=== PATIENT | female | born 1965 | race Caucasian/White ===

== ENCOUNTER 2016-06-26 11:09 | Day surgery (SDC) | payer BC ==
[~2016-06-26] VITALS: Ht 154.9 cm; Wt 90.0 kg
[2016-06-26] VITALS (15 sets, daily range): BP systolic 90–129; BP diastolic 54–87; PULSE 76–92; RESP 12–20; Ht 154.9 cm; Wt 90.0 kg
[~2016-06-26 11:09] MED LIST: ALBU8.5H3 IH; SOD CHLORIDE 0.9% 1,000 ML IV SCH
[2016-06-26 12:52] LABS: ADD SCAN DIFF NO
[2016-06-26 12:58] LABS: BASOPHILS % 0.5 % (0.0-2.0); EOSINOPHILS # 0.2 10^3/ul (0.0-0.5); EOSINOPHILS % 2.2 % (0.0-7.0); HEMATOCRIT 38.6 % (37.0-47.0); HEMOGLOBIN 12.6 g/dl (12.0-16.0); LYMPHOCYTES # 2.4 10^3/ul (0.8-2.9); LYMPHOCYTES % 31.7 % (15.0-51.0); MEAN CORPUSCULAR HEMOGLOBIN 28.5 pg (29.0-33.0); MEAN CORPUSCULAR HGB CONC 32.6 g/dl (32.0-37.0); MEAN CORPUSCULAR VOLUME 87.3 fl (82.0-101.0); MONOCYTE # 0.4 10^3/ul (0.3-0.9); MONOCYTES % 5.3 % (0.0-11.0); NEUTROPHIL # 4.6 10^3/ul (1.6-7.5); NEUTROPHILS % 60.2 % (39.0-77.0); PLATELET COUNT 292 10^3/UL (140-415); RED BLOOD COUNT 4.42 10^6/ul (4.20-5.40); RED CELL DISTRIBUTION WIDTH 13.9 % (11.5-14.5); WHITE BLOOD COUNT 7.6 10^3/ul (4.8-10.8)
--- NOTE | 2016-06-26 13:08 | RADRPT ---
PROCEDURE: XR Chest. CLINICAL INDICATION: Preoperative, left upper neck mass TECHNIQUE: Single frontal view of the chest was obtained COMPARISON: 09/03/2012 FINDINGS: The heart and mediastinum are within normal limits. The lungs are clear. There is no pleural effusion or pneumothorax. RPTAT: AA IMPRESSION: No acute disease. .Heladio Garcia MD, MD Date Time Electronically viewed and signed by .Heladio Garcia MD, MD on 06/26/2016 13:08 .S/
[2016-06-26] MEDS ORDERED: CEFAZOLIN 1 GM/50 ML (PMX) 50 ML IVPB ONE (14:00)
[2016-06-26] MEDS ORDERED: BUPIVACAINE 0.25% (MPF) 30 ML INJ ONE (14:00)
[2016-06-26] MEDS ORDERED: CEFAZOLIN 1 GM INJ ONE (14:33)
[2016-06-26] MEDS ORDERED: PROPOFOL 20 ML ONE (14:33)
[2016-06-26] MEDS ORDERED: FENTAnyl 50 MCG/ML VIAL ONE (14:33)
[2016-06-26] MEDS ORDERED: ONDANSETRON 4 MG INJ ONE (14:35)
[2016-06-26] MEDS ORDERED: METOCLOPRAMIDE 10 MG INJ ONE (14:36)
[2016-06-26] MEDS ORDERED: DEXAMETHASONE 4 MG/ML 1 ML INJ ONE (14:36)
[2016-06-26] MEDS ORDERED: KETOROLAC 30 MG INJ ONE (14:36)
[2016-06-26] MEDS ORDERED: MIDAZOLAM 1 MG/ML 2 ML INJ ONE (14:49)
[2016-06-26] MEDS ORDERED: morphine (1 MG/ML) 10ML SYRINGE IV PRN ×3 (15:00)
[2016-06-26] MEDS ORDERED: ONDANSETRON 4 MG INJ IV PRN (15:00)
[2016-06-26] MEDS ORDERED: HYDROmorphONE (0.2 MG/ML) 10ML SYG IV PRN ×3 (15:00)
[2016-06-26] MEDS ORDERED: HYDROCODONE/APAP (5/325) TAB PO ONE (15:00)
[2016-06-26] MEDS ORDERED: DIPHENHYDRAMINE 50 MG INJ IV PRN (15:00)
[2016-06-26] MEDS ORDERED: MEPERIDINE 25 MG INJ IV PRN (15:00)
--- NOTE | 2016-06-26 15:12 | OPR ---
DATE OF OPERATION: 06/26/2016 INDICATION: This is a 50-year-old female with a back mass. She requests surgical excision. The ri sks, alternatives, benefits, and personnel were discussed with the patient. The patient expressed u nderstanding and consented to the operation. PREOPERATIVE DIAGNOSIS: Back mass. POSTOPERATIVE DIAGNOSIS: Back mass. OPERATION PERFORMED: 1. Excision of back mass with a 4-cm size incision and 3-cm size mass. 2. Localized adjacent tissue transfer with the use of skin flaps. SURGEON: Milagros Kendrick MD SPECIMEN: Back mass. COMPLICATIONS: None. ANESTHESIA: General. PROCEDURE: The patient was taken to the OR and prepped and draped in the usual sterile fashion. A surgical timeout was performed. IV antibiotics were given. An incision was made transversely over the back mass with a 15 blade. Dissection cautery was carried down to the mass and circumferentiall y excised. There was good hemostasis. Due to the tissue defect, localized adjacent tissue transfer with the use of skin flaps was performed. Multilayer closure with interrupted 3-0 Vicryl and skin dali. Local anesthesia was injected. Dry dressings were applied. Dictated By: MILAGROS KENDRICK MD SB/NTS Conf#: [id number] DID#: [id number]
== END 2016-06-26 16:30 | disposition home or self-care (01) ==
LOC: SDS 11:09
PROVIDERS: ATTEND Surgery
DX: L72.0 Epidermal cyst (principal); E66.9 Obesity, unspecified; Z68.37 Body mass index [BMI] 37.0-37.9, adult
CPT/HCPCS: 14000; 71010; 85025; 88304; 93005; J0690; J1100; J1885; J2250; J2405; J2765; J3010; Z7512; Z7610

== ENCOUNTER 2017-01-17 12:08 | Emergency (ER) | payer BC ==
[~2017-01-17] VITALS: Ht 154.9 cm; Wt 89.0 kg
[~2017-01-17 12:08] MED LIST changes: -SOD CHLORIDE 0.9% 1,000 ML IV SCH
[2017-01-17 12:10] VITALS: Ht 154.9 cm; Wt 89.0 kg
[2017-01-17] MEDS ORDERED: ALBUTEROL 0.083% (NEB) 2.5 MG/3 ML AMP HHN STA (12:31)
[2017-01-17] MEDS ORDERED: IPRATROPIUM (NEB) 0.5 MG/2.5 ML AMP HHN ONE (13:00)
[2017-01-17] MEDS ORDERED: ALBU18HF INHALATION (13:15)
[2017-01-17] MEDS ORDERED: SODI126M NASAL (13:15)
--- NOTE | 2017-01-17 13:34 | ERD ---
ER Documentation Chief Complaint Date/Time DATE: 01/17/17 TIME: 13:22 Chief Complaint asthma attack HPI 51-year-old female complaining of cough 5 days. Patient stated that she has history of asthma, she feels like this is an asthma attack. She does not have inhaler for asthma. She is borrowing her friend's inhaler. Inhaler had helped her. She went to see her PCP last week, was given Robitussin cough syrup. Denies fever or chills. Denies chest pain. Denies abdominal pain, vomiting, or diarrhea. ROS All systems reviewed and are negative except as per history of present illness. Medications Home Meds Active Scripts Sodium Chloride (Saline Nasal Mist) 126 Ml Mist, 2 SPRAY NASAL Q2H Y for NASAL CONGESTION, #1 BOTTLE Prov:SHANIQUE VALVERDE. MARCO 01/17/17 Albuterol Sulfate* (Ventolin HFA*) 18 Gm Hfa.aer.ad, 2 PUFF INHALATION Q4H, #1 INHALER Prov:SHANIQUE VALVERDE NP 01/17/17 Reported Medications Albuterol Sulfate* (Proair HFA*) 8.5 Gm Hfa.aer.ad, 8.5 GM IH 09/03/12 Allergies Allergies: Coded Allergies: No Known Allergy (Unverified , 09/03/12) PMhx/Soc History of Surgery: No Anesthesia Reaction: No Hx Neurological Disorder: No Hx Respiratory Disorders: No Hx Cardiac Disorders: No Hx Psychiatric Problems: No Hx Miscellaneous Medical Probl: Yes (ASTHMA) Hx Alcohol Use: No Hx Substance Use: No Hx Tobacco Use: No Smoking Status: Never smoker Physical Exam Vitals Vital Signs Date Time Temp Pulse Resp B/P Pulse Ox O2 Delivery O2 Flow Rate FiO2 01/17/17 12:42 89 18 96 21 01/17/17 12:10 98.7 121 25 131/77 96 Physical Exam General: Well-developed, well-nourished, conscious and coherent, in no distress Skin: Warm and dry without rash, good texture and turgor Head: Normocephalic without evidence of trauma Eyes: Sclera and conjunctivae normal; pupils equal, round, and reactive to light; extraocular movements are intact Nose/Face: Without rhinorrhea Mouth/throat: Mucous membranes are moist. Posterior pharynx clear without erythema or exudates Neck: Supple without meningismus or adenopathy. Carotids are equal. Trachea midline. No bruits or JVD Chest: Normal AP diameter. Good expansion without retractions. Nontender. Lungs are clear to auscultate bilaterally with good tidal volume. Slightly prolonged expiratory phase without wheezing, rales, or rhonchi. Heart: Regular rate and rhythm. No murmur, rub, or gallops heard Extremities: Full range of motion. Good strength bilaterally. No clubbing, cyanosis, or edema. Peripheral pulses are intact. Sensation intact Neuro: Alert and oriented 4, GCS 15. Cranial nerves grossly intact. Motor and sensory exams nonfocal. Moves all extremities. Speech clear. Gait normal Results 24 hrs Current Medications Medications (Trade) Dose Ordered Sig/Efrain Route PRN Reason Start Time Stop Time Status Last Admin Dose Admin Albuterol (Proventil 0.083% (Neb)) 5 mg ONCE STAT N 01/17/17 12:31 01/17/17 12:32 DC 01/17/17 12:41 Ipratropium [place] (Atrovent 0.02% (Neb)) 0.5 mg ONCE ONCE [facility] 01/17/17 13:00 01/17/17 13:01 DC 01/17/17 12:41 Procedures/MDM Well-appearing 51-year-old female presented ED with nonproductive cough 5 days. Patient has history of asthma, feels like this is a asthma attack. Patient given nebulizer treatment with epidural and Atrovent. Patient reports doing much better after the breathing treatment. However there is no significant difference either in her lung sounds, or her oxygen saturation before and after the nebulizer treatment. I suspect patient has acute viral bronchitis secondary to viral URI. I doubt pneumonia. Patient appears well, stable for discharge and outpatient management. Medical decision making shared with patient and family. Education provided to patient and family. Patient and family expressed understanding of the plan. Medications on discharge: Albuterol HFA, saline nasal spray. Follow-up: Primary care provider in 2-3 days or return to ED if worse. Disclaimer: Inadvertent spelling and grammatical errors are likely due to EHR/ dictation software use and do not reflect on the overall quality of patient care. Also, please note that the electronic time recorded on this note does not necessarily reflect the actual time of the patient encounter. Departure Diagnosis: Primary Impression: Cough Condition: Stable Patient Instructions: Bronchitis, No Antibiotic (Adult) Additional Instructions: Llame al doctor MAANA y juni shelbi EZ PARA DENTRO DE 2-3 TRONCOSO.Dgale a la secretaria que nosotros le instruimos hacer esta ez.Avise o llame si patton condicin se empeora antes de la ez. Regresa aqui si peor o no mejor. SHANIQUE VALVERDE NP Jan 17, 2017 13:34
== END 2017-01-17 13:23 | disposition home or self-care (01) ==
LOC: FTE 12:08
DX: R05 Cough (principal); J45.909 Unspecified asthma, uncomplicated
CPT/HCPCS: 94664; 99283; Z7610

== ENCOUNTER 2018-04-28 08:55 | Emergency (ER) | payer BC ==
[~2018-04-28] VITALS: Ht 160 cm; Wt 88.0 kg
[~2018-04-28 08:55] MED LIST changes: +ALBU18HF INHALATION; -ALBU8.5H3 IH; +ALBU8.5H8 IH; +SODI126M NASAL
[2018-04-28 08:59] VITALS: Ht 160 cm; Wt 88.0 kg
[2018-04-28] MEDS ORDERED: KETOROLAC 30 MG INJ IM STA (09:25)
[2018-04-28] MEDS ORDERED: CEPH-443 PO (09:26)
[2018-04-28] MEDS ORDERED: IBUP-1542 PO (09:26)
--- NOTE | 2018-04-28 09:35 | ERD ---
ER Documentation Chief Complaint Chief Complaint abscess upper back x 2 months HPI Patient is a 52-year-old female who presents ER for concerns of recurrent upper back cyst times 2 months. Patient states that a year ago she had "fat cyst" taken out from her upper back. Patient states for approximately 8-9 months she had no symptoms however 2 months ago she noticed that the cyst was returning to the affected area. Patient denies any fevers or chills. Patient denies any chest pain, shortness of breath, hemoptysis, nausea, vomiting or LOC. Patient denies any trauma or falls. Patient denies any numbness or tingling. ROS All systems reviewed and are negative except as per history of present illness. Medications Home Meds Active Scripts Ibuprofen* (Motrin*) 600 Mg Tab, 600 MG PO Q6, #30 TAB Prov:HORTENSIA HARRIS PA-C 04/28/18 Cephalexin* (Keflex*) 500 Mg Capsule, 500 MG PO BID for 7 Days, CAP Prov:HORTENSIA HARRIS PA-C 04/28/18 Sodium Chloride (Saline Nasal Mist) 126 Ml Mist, 2 SPRAY NASAL Q2H PRN for NASAL CONGESTION, #1 BOTTLE Prov:SHANIQUE VALVERDE. JAVA PROGRAMMER 01/17/17 Albuterol Sulfate* (Ventolin HFA*) 18 Gm Hfa.aer.ad, 2 PUFF INHALATION Q4H, #1 INHALER Prov:SHANIQUE VALVERDE. JAVA PROGRAMMER 01/17/17 Reported Medications Albuterol Sulfate* (Proair HFA*) 8.5 Gm Hfa.aer.ad, 8.5 GM IH 09/03/12 Allergies Allergies: Coded Allergies: No Known Allergy (Unverified , 09/03/12) PMhx/Soc History of Surgery: No Anesthesia Reaction: No Hx Neurological Disorder: No Hx Respiratory Disorders: No Hx Cardiac Disorders: No Hx Psychiatric Problems: No Hx Miscellaneous Medical Probl: Yes (ASTHMA) Hx Alcohol Use: No Hx Substance Use: No Hx Tobacco Use: No Smoking Status: Never smoker FmHx Family History: No diabetes Physical Exam Vitals Vital Signs Date Temp Pulse Resp B/P (MAP) Pulse Ox O2 O2 Flow FiO2 Time Delivery Rate 04/28/18 98.3 108 18 146/83 96 08:59 (104) Physical Exam GENERAL: Well-developed, well-nourished female. Appears in no acute distress. Speaking in full sentences HEAD: Normocephalic, atraumatic. EYES: Pupils are equally reactive bilaterally. EOMs grossly intact. No conjunctival erythema. ENT: Moist mucous membranes. No uvula deviation. No kissing tonsils. NECK: Supple. No meningismus. Normal range of motion of the neck. LUNG: Clear to auscultation bilaterally. No rhonchi, wheezing, rales or coarse breath sounds. HEART: Tachycardic. No murmurs or gallops. EXTREMITIES: Equal pulses bilaterally. No peripheral clubbing, cyanosis or edema. No unilateral leg swelling. NEUROLOGIC: Alert and oriented. Moving all four extremities without any difficulty. Normal speech. Steady gait. SKIN: Healed surgical scar noted to the mid upper back. 1.5 cm round, movable mass noted below previous surgical scar site. No surrounding erythema, warmth, discharge or bleeding. The affected mass is slightly tender to palpation. Results 24 hrs Current Medications Medications Dose Sig/Efrain Start Time Status Last (Trade) Ordered Route PRN Stop Time Admin Dose Reason Admin Ketorolac 30 mg ONCE STAT 04/28/18 DC Tromethamine IM 09:25 04/28/18 (Toradol) 09:26 Procedures/MDM MEDICAL DECISION MAKING: Patient is a 52-year-old female who presents the ER for concerns of recurrent back cyst times 2 months. Vital signs were reviewed. Patient is afebrile. Patient was not hypoxic. Patient was hemodynamically stable. Review of the patient's medical records show that patient did have an epidermal inclusion cyst removed from her upper back in June 2016. Patient's current back cyst is recurrent at previous incision site. Patient has no fevers, chills, nausea, vomiting, chest pain or shortness of breath. I will empirically treat patient with course of antibiotics to prevent infection as patient does state that the affected area is tender to touch. Patient will be given prescription for Keflex. Patient advised to follow-up with previous surgeon and/or detective narcotics and vice for removal of current cyst versus mass. Low suspicion for abscess, cellulitis, deep space infection, sepsis. PRESCRIPTION: Keflex, ibuprofen DISCHARGE: At this time, patient is stable for discharge and outpatient management. I have instructed the patient to follow-up with his/her primary care physician in 1-2 days. I have discussed with the patient the possibility of needing to see a specialist for further workup and imaging studies if symptoms persist. I have instructed the patient to promptly return to the ER for any new or worsening symptoms including increased pain, fever, nausea, vomiting, weakness or LOC. The patient and/or family expressed understanding of and agreement with this plan. All questions were answered. Home care instructions were provided. Disclaimer: Inadvertent spelling and grammatical errors are likely due to EHR/dictation software use and do not reflect on the overall quality of patient care. Also, please note that the electronic time recorded on this note does not necessarily reflect the actual time of the patient encounter. Departure Diagnosis: Primary Impression: Lipoma of back Condition: Fair Patient Instructions: Lipoma Referrals: VICTORINA CALLAHAN MD,PAM REIS,KRISTI WEN,ABI OHARA,FELICITA LOZANO,TEDDY IQBAL,TEDDY Harrison [facility] YOU HAVE RECEIVED A MEDICAL SCREENING EXAM AND THE RESULTS INDICATE THAT YOU DO NOT HAVE A CONDITION THAT REQUIRES URGENT TREATMENT IN THE EMERGENCY DEPARTMENT. FURTHER EVALUATION AND TREATMENT OF YOUR CONDITION CAN WAIT UNTIL YOU ARE SEEN IN YOUR DOCTORS OFFICE WITHIN THE NEXT 1-2 DAYS. IT IS YOUR RESPONSIBILITY TO MAKE AN APPOINTMENT FOR FOLOW-UP CARE. IF YOU HAVE A PRIMARY DOCTOR --you should call your primary doctor and schedule an appointment IF YOU DO NOT HAVE A PRIMARY DOCTOR YOU CAN CALL OUR PHYSICIAN REFERRAL HOTLINE AT IF YOU CAN NOT AFFORD TO SEE A PHYSICIAN YOU CAN CHOSE FROM THE FOLLOWING [facility] [address] [facility]. [facility] [address] [facility]. [facility] [address] [facility] [facility] [address] [facility]. [facility] [address] [facility] [facility]. [facility]. [address] [facility]. [facility] YOU HAVE RECEIVED A MEDICAL SCREENING EXAM AND THE RESULTS INDICATE THAT YOU DO NOT HAVE A CONDITION THAT REQUIRES URGENT TREATMENT IN THE EMERGENCY DEPARTMENT. FURTHER EVALUATION AND TREATMENT OF YOUR CONDITION CAN WAIT UNTIL YOU ARE SEEN IN YOUR DOCTORS OFFICE WITHIN THE NEXT 1-2 DAYS. IT IS YOUR RESPONSIBILITY TO MAKE AN APPOINTMENT FOR FOLOW-UP CARE. IF YOU HAVE A PRIMARY DOCTOR --you should call your primary doctor and schedule and appointment IF YOU DO NOT HAVE A PRIMARY DOCTOR YOU CAN CALL OUR PHYSICIAN REFERRAL HOTLINE AT . IF YOU CAN NOT AFFORD TO SEE A PHYSICIAN YOU CAN CHOSE FROM THE FOLLOWING [facility] INSTITUTIONS: [facility] [address] [place] [address] [facility] [address] [place] [address] [facility] [address] [place] [address] Additional Instructions: Llame al doctor MAANA y juni shelbi BRITANY PARA DENTRO DE 1-2 TRONCOSO.Dgale a la secretaria que nosotros le instruimos hacer esta britany.Avise o llame si patton condicin se empeora antes de la britany. Regresa aqui si peor o no mejor. HORTENSIA HARRIS PA-C Apr 28, 2018 09:35
== END 2018-04-28 11:02 | disposition home or self-care (01) ==
LOC: FTE 08:55
DX: D17.9 Benign lipomatous neoplasm, unspecified (principal); J45.909 Unspecified asthma, uncomplicated
CPT/HCPCS: 96372; 99284; J1885